=== PATIENT | female | born 1980 | race African-American/Black ===

== ENCOUNTER → 2020-11-11 11:47 | Outpatient (BNVA) | payer OTHER, SELFPAY | PROVIDERS: PCP Nurse Practitioner Family; Visit Provider Physician Assistant ==

== ENCOUNTER → 2020-11-19 07:20 | Outpatient (BNVA) | payer OTHER, SELFPAY | PROVIDERS: PCP Nurse Practitioner Family; Visit Provider Surgery ==

== ENCOUNTER 2020-11-24 10:19 | Outpatient (REF) | payer OTHER, SELFPAY ==
[2020-11-25 14:26] LABS: H Pylori Breath Test DETECTED (NOT DETECTED)
== END 2020-11-24 10:20 | disposition home or self-care (01) ==
LOC: HO.LNP 10:19
PROVIDERS: PCP Nurse Practitioner Family; Visit Provider Physician Assistant
DX: E66.01 Morbid (severe) obesity due to excess calories (principal); Z68.36 Body mass index [BMI] 36.0-36.9, adult; I10 Essential (primary) hypertension; K21.9 Gastro-esophageal reflux disease without esophagitis
CPT/HCPCS: 83013; 99211

== ENCOUNTER 2020-12-02 08:02 | Outpatient (REF) | payer OTHER, SELFPAY ==
--- NOTE | ~2020-12-02 | US_ITS ---
EXAMINATION: US COMPLETE ABDOMEN WITH LIVER ELASTOGRAPHY CLINICAL INFORMATION: obesity COMPARISON: None. TECHNIQUE: Real-time imaging of the abdominal viscera. Noninvasive ultrasound liver fibrosis assessment is performed using Ruddy ElastPQ point quantification shear wave elastography (pSWE) with a C5-2 MHz transducer. Multiple elastography samples are obtained. FINDINGS: PANCREAS: Normal. The visualized pancreatic head and body are normal in appearance. The remainder of the pancreas is obscured from visualization by the overlying bowel gas. ABDOMINAL AORTA: The proximal, middle, and distal aortic segments are normal in caliber. INFERIOR VENA CAVA: Visualized portions are normal. LIVER: Normal. The liver demonstrates normal size, contour and echogenicity. No focal lesion or intrahepatic biliary duct dilatation. The right lobe measures 14.1 cm in length. The left lobe measures 12.6 cm in length. Portal flow is hepatopedal Shear wave liver elastography median stiffness is 1.94 m/s (reference: normal median stiffness is 1.3 m/s or less). IQR/median stiffness to assess sampling precision is 0.19 (reference: good quality data set is IQR/median stiffness of 0.15 or less). GALLBLADDER: There are gallstones. No ultrasound evidence of cholecystitis, no gallbladder wall thickening or tenderness, no pericholecystic fluid collection. COMMON BILE DUCT: Normal in caliber measuring 0.3 cm in diameter. RIGHT KIDNEY: Normal. No hydronephrosis. No renal calculi or focal parenchymal lesions. The kidney measures 12.5 cm in maximum dimension. LEFT KIDNEY: Normal. No hydronephrosis. No renal calculi or focal parenchymal lesions. The kidney measures 14 cm in maximum dimension. SPLEEN: Normal. The spleen measures 11.8 cm in maximum dimension. FREE FLUID: None. US/US abdomen comp w elastography IMPRESSION: 1. Elastography of the liver is slightly abnormal median value is 1.94 and IQR 0.19. 2. Cholelithiasis without ultrasound evidence of acute cholecystitis. REFERENCE: Society of Radiologists in Ultrasound Liver Stiffness Thresholds (2020): LIVER STIFFNESS THRESHOLDS: *Liver Stiffness equal or less than 1.3 m/s: High probability of being normal. *Liver Stiffness less than 1.7 m/s: In the absence of other known clinical signs, rules out compensated advanced chronic liver disease. *Liver Stiffness 1.7-2.1 m/s: Suggestive of compensated advanced chronic liver disease but need further test for confirmation. *Liver Stiffness over 2.1 m/s: Rules in compensated advanced chronic liver disease. *Liver Stiffness over 2.4 m/s: Suggestive of clinically significant portal hypertension. QUALITY OF DATA SET: *IQR/Median value equal or less than 0.15 implies a quality data set. *IQR/Median value over 0.15 implies a poor quality data set. SIGNIFICANT CHANGE FROM PRIOR EXAM: Significant change if liver stiffness measurement is 10% or greater from prior exam. OTHER CONSIDERATIONS: The stage of liver fibrosis may be overestimated in the setting of acute hepatitis, liver inflammation, elevated liver function tests, hepatic vascular congestion, obstructive cholestasis, non-fasting state, and infiltrative diseases such as amyloidosis and lymphoma. In some patients with NAFLD, the liver stiffness thresholds for compensated advanced chronic liver disease may be lower. In causes other than viral hepatitis and NAFLD, liver stiffness thresholds are not well established.
--- NOTE | ~2020-12-02 | XR_ITS ---
EXAMINATION: XR CHEST CLINICAL INFORMATION: Obesity COMPARISON: None TECHNIQUE: 2 views of the chest were obtained. FINDINGS: Cardiac silhouette is normal in size. The lungs are adequately aerated. Mild asymmetric elevation of the right hemidiaphragm. Subtle linear opacity in the left lower lung likely represent subsegmental atelectasis. No lobar consolidation. No pleural effusion or pneumothorax. No acute osseous abnormality. XR/XR chest 2V IMPRESSION: No acute pulmonary pathology.
--- NOTE | ~2020-12-02 | FL_ITS ---
EXAMINATION: XR GI SERIES CLINICAL INFORMATION: Obesity COMPARISON: None TECHNIQUE: Upper GI was performed using thin and thick barium and effervescent granules. FINDINGS: Esophageal motility is normal. There is a small sliding-type hiatal hernia. There is gastroesophageal reflux. The stomach and duodenum are normal-appearing. No fold thickening, mass, ulcer or stricture is seen. FLUOROSCOPY TIME: 0.9 minutes DOSE AREA PRODUCT: 11.8 Whitman per centimeter squared. 24 saved fluoroscopic images. FL/FL upper GI series IMPRESSION: Small sliding-type hiatal hernia and gastroesophageal reflux. Otherwise unremarkable exam.
--- NOTE | 2020-12-02 09:46 | ECG_ITS ---
Test Reason : OBESITY Blood Pressure : / mmHG Vent. Rate : 105 BPM Atrial Rate : 105 BPM P-R Int : 176 ms QRS Dur : 086 ms QT Int : 370 ms P-R-T Axes : 052 003 049 degrees QTc Int : 489 ms Sinus tachycardia Otherwise normal ECG No previous ECGs available Referred By: Saulo Roberts Electronically Signed By:CAT STINSON MD
[2020-12-02 10:14] LABS: Basophils Percent Auto 0.5 % (0-2); Imm Gran Abs Auto 0.02 X10*3/uL (0.00-0.03); Imm Gran Pct Auto 0.3 % (0.0-0.4); MANUAL DIFF FLAG SCAN; Mean Corpuscular Hemoglobin 24.5 pg (27.0-33.0); Red Cell Distribution Width 14.7 % (11.0-16.0); SCAN SMEAR FLAG 1
[2020-12-02 10:16] LABS: Eosinophils Absolute Auto 0.7 X10*3/uL (0.0-0.4); Eosinophils Percent Auto 11.2 % (0-4); Hematocrit 38.2 % (37-47); Lymphocytes Absolute Auto 1.3 X10*3/uL (1.2-4.9); Lymphocytes Percent Auto 21.3 % (20-40); Mean Corpuscular HGB Conc 31.4 g/dl (31.0-35.0); Monocytes Absolute Auto 0.4 X10*3/uL (0.1-1.2); Monocytes Percent Auto 6.4 % (2-11); Neutrophils Absolute Auto 3.6 X10*3/uL (2.0-8.3); Neutrophils Percent Auto 60.3 % (45-73); Platelet Count 120 X10*3/uL (160-400); White Blood Count 6.1 X10*3/uL (4.8-10.8)
[2020-12-02 10:19] LABS: PLT ABN DIST 1
[2020-12-02 10:20] LABS: SLIDE REVIEW VERIFIED
[2020-12-02 10:22] LABS: Alanine Aminotransferase 21 U/L (0-31); Albumin Level 3.9 g/dL (3.5-5.0); Alkaline Phosphatase 90 U/L (39-117); Anion Gap 12 (12-20); Aspartate Amino Transferase 23 U/L (5-31); Bilirubin Total 0.5 mg/dL (0.0-1.0); Blood Urea Nitrogen 7 mg/dL (9-16); C Reactive Protein 1.36 mg/dL (< or = 0.50); Calcium 8.4 mg/dL (8.4-10.2); Carbon Dioxide 29 mmol/L (22-29); Chloride 101 mmol/L (96-108); Cholesterol 153 mg/dL; Estimated Glomerular Filt Rate > 60; Glucose Random 169 mg/dL (60-115); HDL Cholesterol 48 mg/dL; LDL Cholesterol Calculated 89 mg/dl; Potassium 3.2 mmol/L (3.3-5.1); Sodium 139 mmol/L (135-145); Total Protein 7.5 g/dL (6.5-8.0); Triglycerides 84 mg/dL
[2020-12-02 10:32] LABS: Estimated Average Glucose 212 mg/dL
[2020-12-02 10:46] LABS: Ferritin 49 ng/mL (10-122); TSH reflex Free T4 0.89 uIU/mL (0.32-4.0); Vitamin D 25-OH Total 23.4 ng/mL (>30)
[2020-12-02 11:04] LABS: Folate 16.2 ng/mL (> or = 4.0); Vitamin B12 810 pg/mL (200-900)
[2020-12-03 06:37] LABS: Insulin Level Total 14.1 uIU/mL
[2020-12-03 15:01] LABS: Calcium (PTHI) 8.7 mg/dL (8.6-10.2); PTHI 16 pg/mL (14-64)
[2020-12-05 01:52] LABS: Zinc 56 mcg/dL (60-130)
[2020-12-06 12:16] LABS: Vitamin A 25 mcg/dL (38-98)
[2020-12-06 12:42] LABS: Vitamin B1 26 nmol/L (8-30)
== END 2020-12-02 08:03 | disposition home or self-care (01) ==
LOC: HO.US 08:02
PROVIDERS: PCP Internal Medicine; Visit Provider Surgery
DX: Z01.818 Encounter for other preprocedural examination (principal); E66.01 Morbid (severe) obesity due to excess calories; Z68.36 Body mass index [BMI] 36.0-36.9, adult; K21.9 Gastro-esophageal reflux disease without esophagitis; I10 Essential (primary) hypertension
CPT/HCPCS: 36415; 71046; 74240; 76705; 76981; 80053; 80061; 82306; 82607; 82728; 82746; 83036; 83525; 83970; 84425; 84443; 84590; 84630; 85025; 86140; 93005

== ENCOUNTER → 2020-12-12 08:18 | Outpatient (BNVA) | payer OTHER, SELFPAY | PROVIDERS: PCP Internal Medicine; Visit Provider Surgery ==

== ENCOUNTER → 2020-12-19 12:02 | Outpatient (BNVA) | payer OTHER, SELFPAY | PROVIDERS: PCP Nurse Practitioner Family; Visit Provider Dietitian, Registered ==

== ENCOUNTER 2020-12-26 13:29 | Outpatient (REF) | payer OTHER, SELFPAY ==
[2020-12-27 15:12] LABS: H Pylori Breath Test NOT DETECTED (NOT DETECTED)
== END 2020-12-26 13:30 | disposition home or self-care (01) ==
LOC: HO.LNP 13:29
PROVIDERS: Physician Assistant; PCP Nurse Practitioner Family; Referring Provider Nurse Practitioner Family; Visit Provider Surgery
DX: A04.8 Other specified bacterial intestinal infections (principal)
CPT/HCPCS: 83013; 99211

== ENCOUNTER 2020-12-31 10:39 | Outpatient (REF) | payer OTHER, SELFPAY ==
[2020-12-31 11:52] LABS: Estimated Average Glucose 194 mg/dL; Hemoglobin A1c % 8.4 %
[2020-12-31 11:55] LABS: Anion Gap 10 (12-20); Blood Urea Nitrogen 5 mg/dL (9-16); Calcium 9.4 mg/dL (8.4-10.2); Carbon Dioxide 29 mmol/L (22-29); Chloride 104 mmol/L (96-108); Estimated Glomerular Filt Rate > 60; Glucose Fasting 106 mg/dL (60-99); Potassium 4.4 mmol/L (3.3-5.1); Sodium 139 mmol/L (135-145)
== END 2020-12-31 10:40 | disposition home or self-care (01) ==
LOC: HO.LAB 10:39
PROVIDERS: PCP Nurse Practitioner Family; Visit Provider Surgery
DX: E11.9 Type 2 diabetes mellitus without complications (principal)
CPT/HCPCS: 36415; 80048; 83036

== ENCOUNTER → 2021-01-12 08:14 | Outpatient (BNVA) | payer OTHER, SELFPAY | PROVIDERS: PCP Nurse Practitioner Family; Visit Provider Dietitian, Registered | DX: E66.9 Obesity, unspecified (principal); Z68.33 Body mass index [BMI] 33.0-33.9, adult | CPT/HCPCS: 97802 ==

== ENCOUNTER → 2021-01-19 07:37 | Outpatient (BNVA) | payer OTHER, SELFPAY | PROVIDERS: PCP Nurse Practitioner Family; Visit Provider Surgery ==

== ENCOUNTER → 2021-01-22 13:05 | Outpatient (BNVA) | payer OTHER, SELFPAY | PROVIDERS: PCP Nurse Practitioner Family; Visit Provider Surgery ==

== ENCOUNTER → 2021-01-23 13:41 | Outpatient (BNVA) | payer OTHER, SELFPAY | PROVIDERS: PCP Nurse Practitioner Family; Visit Provider Physician Assistant ==

== ENCOUNTER 2021-01-29 06:14 | Inpatient (IN) | payer OTHER, SELFPAY ==
[2021-01-22 14:55] VITALS: BMI 32.8
--- NOTE | 2021-01-23 09:48 | HO.ANESPROP2 ---
HPI - Anesthesia Eval Consult details Narrative: 40yo F for Gastric Bypass Laparoscopic h/o ETOH abuse x 10 years, on naltrexone, no ETOH for ~1year cirrhosis followed by GI doctor at [facility] - last GI note and EGD (no varices) report obtained (sent to Dr Persaud). LFTs wnl. Case reviewed with Dr Junior. [facility] Active Problems Active Problems: All Active Problems (Updated 01/22/21 @ 14:59 by Christie Alba) Obesity (Acute) BMI 36.0-36.9,adult (Acute) Insulin dependent diabetes mellitus (Acute) H. pylori infection (Acute) Vitamin D deficiency (Acute) Diabetes (Acute) BMI 32.0-32.9,adult (Acute) Preprocedural examination (Acute) Anxiety (Acute) Depression (Acute) GERD (gastroesophageal reflux disease) (Acute) Hypertension (Acute) Past Medical History Medical History (Updated 01/30/21 @ 00:02 by Yamil Conde) ADD (attention deficit disorder) Anemia Anxiety BMI 32.0-32.9,adult BMI 36.0-36.9,adult Cirrhosis COVID-19 vaccine series completed Depression Diabetes GERD (gastroesophageal reflux disease) H. pylori infection History of alcohol abuse Hypertension Neuropathy Preprocedural examination Seasonal allergies Tachycardia Vitamin D deficiency Family History Family History Mother Hypertension Father No problems noted. Brother No problems noted. Brother No problems noted. Brother No problems noted. Sister No problems noted. Daughter No problems noted. Daughter No problems noted. Family history of problems with anesthesia: No Surgical History Surgical History (Updated 01/29/21 @ 12:37 by Nguyen Avendano PA-C) History of ear surgery Hx of section History of Problems with Anesthesia: No Social History Social History (Updated 11/19/20 @ 09:06 by Geoff Millan Meredith) Are you a primary long term care administrator to a significant other at home: No Do you presently have visiting nurse or other home services: No Alcohol intake: former Patient Tobacco Use Status: Never used Tobacco service: No Current occupational status: unemployed Narrative Narrative: No recent illness >4 mets with walking for exercise Meds Allergies Allergy/AdvReac Type Severity Reaction Status Date / Time No Known Allergies Allergy Verified 01/22/21 13:12 Home Medications Medication Instructions Recorded Confirmed Last Taken Type buspirone 5 mg tablet 5 mg PO BID 11/11/20 01/22/21 Unknown History insulin glargine 100 unit/mL (3 17 unit SUBCUT QPM 11/11/20 01/22/21 Unknown History mL) subcutaneous pen Vyvanse 1 cap PO QAM 01/22/21 01/22/21 Unknown History amitriptyline 1 tab PO BEDTIME 01/22/21 01/22/21 Unknown History bupropion HCl 1 tab PO DAILY 01/22/21 01/22/21 Unknown History escitalopram oxalate 1 tab PO DAILY 01/22/21 01/22/21 Unknown History furosemide 1 tab PO DAILY 01/22/21 01/22/21 Unknown History lisinopril 1 tab PO DAILY 01/22/21 01/22/21 Unknown History naltrexone 1 tab PO DAILY 01/22/21 01/22/21 Unknown History trazodone 1 tab PO BEDTIME PRN 01/22/21 01/22/21 Unknown History amlodipine 1 tab PO DAILY 01/29/21 01/29/21 Unknown History Exam Exam Date and Time: January 23, 2021 0948 Height,Weight and Vital Signs: Height 5 ft 1 in Weight 78.925 kg Pertinent Lab Results Pertinent Lab Results: Lab Results 01/23/21 01/23/21 01/23/21 Range/Units 12:18 12:18 12:18 WBC 5.8 (4.8-10.8) X10*3/uL RBC 4.94 (4.20-5.50) X10*6/uL Hgb 12.6 (12.0-16.0) g/dl Hct 39.5 (37-47) % MCV 80.0 (80-98) fL MCH 25.5 L (27.0-33.0) pg MCHC 31.9 (31.0-35.0) g/dl RDW 13.7 (11.0-16.0) % Plt Count 110 L (160-400) X10*3/uL MPV Not Reportable Immature Gran % (Auto) 0.2 (0.0-0.4) % Neut % (Auto) 54.7 (45-73) % Lymph % (Auto) 26.2 (20-40) % [place] % (Auto) 6.7 (2-11) % Eos % (Auto) 11.3 H (0-4) % Baso % (Auto) 0.9 (0-2) % Lymph # (Auto) 1.5 (1.2-4.9) X10*3/uL [place] # (Auto) 0.4 (0.1-1.2) X10*3/uL Eos # (Auto) 0.7 H (0.0-0.4) X10*3/uL Baso # (Auto) 0.1 (0.0-0.2) X10*3/uL Abs Immat Gran (auto) 0.01 (0.00-0.03) X10*3/uL Absolute Neuts (auto) 3.2 (2.0-8.3) X10*3/uL Absolute Nucleated RBC 0.000 (0.0-0.012) X10*3/uL Nucleated RBC % (auto) 0.0 (0.0-0.2) /100WBC PT 13.7 H (10.8-13.0) SEC INR 1.2 H (0.9-1.1) APTT 35.8 (24.1-38.0) SEC Sodium 139 (135-145) mmol/L Potassium 4.0 (3.3-5.1) mmol/L Chloride 102 (96-108) mmol/L Carbon Dioxide 30 H (22-29) mmol/L Anion Gap 11 L (12-20) BUN 9 D (9-16) mg/dL Creatinine 1.03 (0.5-1.4) mg/dL Estim Creat Clear Calc 70.4 Estimated GFR 60 Random Glucose 135 H (60-115) mg/dL Estimat Average Glucose mg/dL Hemoglobin A1c % % Total Insulin uIU/mL Calcium 9.3 (8.4-10.2) mg/dL Total Bilirubin 0.2 (0.0-1.0) mg/dL AST 29 (5-31) U/L ALT 28 (0-31) U/L Alkaline Phosphatase 96 (39-117) U/L C-Reactive Protein 1.17 H (< or = 0.50) mg/dL Total Protein 7.4 (6.5-8.0) g/dL Albumin 3.9 (3.5-5.0) g/dL Triglycerides 101 mg/dL Cholesterol 167 mg/dL LDL Cholesterol, Calc 103 mg/dl HDL Cholesterol 44 mg/dL TSH 0.50 (0.32-4.0) uIU/mL Blood Type Antibody Screen 01/23/21 01/23/21 01/23/21 Range/Units 12:18 12:18 12:18 WBC (4.8-10.8) X10*3/uL RBC (4.20-5.50) X10*6/uL Hgb (12.0-16.0) g/dl Hct (37-47) % MCV (80-98) fL MCH (27.0-33.0) pg MCHC (31.0-35.0) g/dl RDW (11.0-16.0) % Plt Count (160-400) X10*3/uL MPV Immature Gran % (Auto) (0.0-0.4) % Neut % (Auto) (45-73) % Lymph % (Auto) (20-40) % [place] % (Auto) (2-11) % Eos % (Auto) (0-4) % Baso % (Auto) (0-2) % Lymph # (Auto) (1.2-4.9) X10*3/uL [place] # (Auto) (0.1-1.2) X10*3/uL Eos # (Auto) (0.0-0.4) X10*3/uL Baso # (Auto) (0.0-0.2) X10*3/uL Abs Immat Gran (auto) (0.00-0.03) X10*3/uL Absolute Neuts (auto) (2.0-8.3) X10*3/uL Absolute Nucleated RBC (0.0-0.012) X10*3/uL Nucleated RBC % (auto) (0.0-0.2) /100WBC PT (10.8-13.0) SEC INR (0.9-1.1) APTT (24.1-38.0) SEC Sodium (135-145) mmol/L Potassium (3.3-5.1) mmol/L Chloride (96-108) mmol/L Carbon Dioxide (22-29) mmol/L Anion Gap (12-20) BUN (9-16) mg/dL Creatinine (0.5-1.4) mg/dL Estim Creat Clear Calc Estimated GFR Random Glucose (60-115) mg/dL Estimat Average Glucose 183 mg/dL Hemoglobin A1c % 8.0 % Total Insulin 19.1 uIU/mL Calcium (8.4-10.2) mg/dL Total Bilirubin (0.0-1.0) mg/dL AST (5-31) U/L ALT (0-31) U/L Alkaline Phosphatase (39-117) U/L C-Reactive Protein (< or = 0.50) mg/dL Total Protein (6.5-8.0) g/dL Albumin (3.5-5.0) g/dL Triglycerides mg/dL Cholesterol mg/dL LDL Cholesterol, Calc mg/dl HDL Cholesterol mg/dL TSH (0.32-4.0) uIU/mL Blood Type O Positive Antibody Screen NEGATIVE Narrative Narrative: EKG 11/2020 Vent. Rate : 105 BPM Atrial Rate : 105 BPM P-R Int : 176 ms QRS Dur : 086 ms QT Int : 370 ms P-R-T Axes : 052 003 049 degrees QTc Int : 489 ms Sinus tachycardia Otherwise normal ECG No previous ECGs available Airway Mallampati Class: II TM Dist: >3cm Neck ROM: Full Denture: Upper and Lower Heart: tachy, RR Lungs: CTAB Assessment and Plan Assessment Anesthesia Assessment: Anesthesia Plan Discussed and PAT Visit
[2021-01-23 13:04] VITALS: BP 123/75; PULSE 101; RESP 20; O2SAT 97
[2021-01-23 13:15] LABS: Basophils Absolute Auto 0.1 X10*3/uL (0.0-0.2); Eosinophils Percent Auto 11.3 % (0-4); Imm Gran Abs Auto 0.01 X10*3/uL (0.00-0.03); Imm Gran Pct Auto 0.2 % (0.0-0.4)
[2021-01-23 13:17] LABS: Basophils Percent Auto 0.9 % (0-2); Eosinophils Absolute Auto 0.7 X10*3/uL (0.0-0.4); Hematocrit 39.5 % (37-47); Hemoglobin 12.6 g/dl (12.0-16.0); Lymphocytes Absolute Auto 1.5 X10*3/uL (1.2-4.9); Lymphocytes Percent Auto 26.2 % (20-40); Mean Corpuscular HGB Conc 31.9 g/dl (31.0-35.0); Mean Corpuscular Hemoglobin 25.5 pg (27.0-33.0); Monocytes Absolute Auto 0.4 X10*3/uL (0.1-1.2); Monocytes Percent Auto 6.7 % (2-11); Neutrophils Absolute Auto 3.2 X10*3/uL (2.0-8.3); Neutrophils Percent Auto 54.7 % (45-73); Platelet Count 110 X10*3/uL (160-400); Red Blood Count 4.94 X10*6/uL (4.20-5.50); Red Cell Distribution Width 13.7 % (11.0-16.0); White Blood Count 5.8 X10*3/uL (4.8-10.8)
[2021-01-23 13:20] LABS: MANUAL DIFF FLAG NO
[2021-01-23 13:25] LABS: INTERNATIONAL NORM RATIO 1.2 (0.9-1.1); Prothrombin Time 13.7 SEC (10.8-13.0)
[2021-01-23 13:27] LABS: Estimated Average Glucose 183 mg/dL; Partial Thromboplastin Time 35.8 SEC (24.1-38.0)
[2021-01-23 13:40] LABS: Alanine Aminotransferase 28 U/L (0-31); Albumin Level 3.9 g/dL (3.5-5.0); Alkaline Phosphatase 96 U/L (39-117); Anion Gap 11 (12-20); Aspartate Amino Transferase 29 U/L (5-31); Bilirubin Total 0.2 mg/dL (0.0-1.0); Blood Urea Nitrogen 9 mg/dL (9-16); C Reactive Protein 1.17 mg/dL (< or = 0.50); Calcium 9.3 mg/dL (8.4-10.2); Carbon Dioxide 30 mmol/L (22-29); Chloride 102 mmol/L (96-108); Cholesterol 167 mg/dL; Creatinine Clr Calc Pharmacy 70.4; Estimated Glomerular Filt Rate 60; Glucose Random 135 mg/dL (60-115); HDL Cholesterol 44 mg/dL; LDL Cholesterol Calculated 103 mg/dl; Sodium 139 mmol/L (135-145); Total Protein 7.4 g/dL (6.5-8.0); Triglycerides 101 mg/dL
[2021-01-24 09:25] LABS: Insulin Level Total 19.1 uIU/mL
--- NOTE | 2021-01-28 19:39 | MHC.SHP ---
Pre-Procedural Eval Section A The patient is an INPATIENT: Yes The History & Physical has been completed within 30 days and I have reviewed it.: Yes Section B Chief Complaint: Obesity Details of Present Illness: Obesity and comorbidities Relevant Family History (Specify if Yes): No Relevant Social History: None Present Medications: see Short Stay Collaborative assessment Medical History: No relevant PMH History of Previous Operations: No relevant previous surgery Allergies: Allergies Allergy/AdvReac Type Severity Reaction Status Date / Time No Known Allergies Allergy Verified 01/22/21 13:12 Review of Systems Sugical H&P ROS: Negative: Constitution, Cardiovascular, Respiratory, Neurological, Psychiatric, Hem-Onc, Allergic/Immunologic, Gastrointestinal, Genitourinary, Musculoskeletal, Integumentary, Endocrine and Eyes/Ears/Nose/Throat Exam Surgical H&P Exam: Normal: HEENT, Normal: Heart, Normal: Lungs, Normal: Extremities, Normal: Abdomen, Normal: Skin and Normal: Neurological Plan Diagnosis/Plan: Change (Original plan was to do a laparoscopic Nicole-en-Y gastric bypass. However after considering her BMI, the significant improvement of her diabetes with preoperative weight loss and a some sonographic evidence of possible early liver cirrhosis a decision was made to change to sleeve gastrectomy.) I have reviewed the history and physical and performed a pertinent physical examination on my patient. No changes have occurred unless specified.
[2021-01-29] VITALS (22 sets, daily range): BP systolic 132–184; BP diastolic 79–111; PULSE 94–105; RESP 13–18; TEMP 36–36.7; O2SAT 96–100
[2021-01-29 06:37] LABS: Glucose, Whole Blood 88 mg/dL (60-115)
[2021-01-29 06:44] LABS: UPreg QC Valid YES; Urine Pregnancy NEGATIVE (NEGATIVE)
[2021-01-29 06:47] LABS: COVID-19 Test Negative (Negative); IDNOW Serial# 9DD0AD1C
[2021-01-29] MEDS: Lactated Ringers 1,000 ML 999 ML IV (07:04)
--- NOTE | 2021-01-29 07:30 | P.CONAN_ITS ---
[facility] Active Problems Active Problems: All Active Problems (Updated 01/23/21 @ 13:15 by Christie haddad) Obesity (Acute) BMI 36.0-36.9,adult (Acute) Insulin dependent diabetes mellitus (Acute) H. pylori infection (Acute) Vitamin D deficiency (Acute) Diabetes (Acute) BMI 32.0-32.9,adult (Acute) Preprocedural examination (Acute) Anxiety (Acute) Depression (Acute) GERD (gastroesophageal reflux disease) (Acute) Hypertension (Acute) Past Medical History Medical History ADD (attention deficit disorder) Anemia Anxiety Cirrhosis COVID-19 vaccine series completed Depression Diabetes GERD (gastroesophageal reflux disease) History of alcohol abuse Hypertension Seasonal allergies Tachycardia Family History Family History Mother Hypertension Father No problems noted. Brother No problems noted. Brother No problems noted. Brother No problems noted. Sister No problems noted. Daughter No problems noted. Daughter No problems noted. Family history of problems with anesthesia: No Surgical History Surgical History History of ear surgery Hx of section History of Problems with Anesthesia: No Social History Social History (Updated 11/19/20 @ 09:06 by Geoff Millan [facility]) Are you a primary primary care sales representative to a significant other at home: No Do you presently have visiting nurse or other home services: No Alcohol intake: former Patient Tobacco Use Status: Never used Tobacco Use of substances other than those prescribed or required for medical reasons: No Have you been hit, kicked, punched, or otherwise hurt by someone within the past year? If so, by whom?: No Are you DNR?: No Advance Directives: No Advance Directives Information Provided: No Advance Directives on File: No Recently lost weight without trying: No Eating poorly because of decreased appetite: No Nutrition Risks: No Nutritional Risk Patient : No Meds Allergies Allergy/AdvReac Type Severity Reaction Status Date / Time No Known Allergies Allergy Verified 01/22/21 13:12 Active Medications: Current Medications Generic Name Dose Route Start Last Admin Trade Name Freq PRN Reason Stop Dose Admin Lactated Ringer's 1,000 mls @ 100 mls/hr 01/29/21 06:15 Lr IVCONT .Q10H [facility] Home Medications Medication Instructions Recorded Confirmed Last Taken Type amlodipine 10 mg tablet 10 mg PO DAILY 11/11/20 01/22/21 Unknown History buspirone 5 mg tablet 5 mg PO BID 11/11/20 01/22/21 Unknown History insulin glargine 100 unit/mL (3 17 unit SUBCUT QPM 11/11/20 01/22/21 Unknown History mL) subcutaneous pen amitriptyline 1 tab PO BEDTIME 01/22/21 01/22/21 Unknown History bupropion HCl 1 tab PO DAILY 01/22/21 01/22/21 Unknown History dapagliflozin [Farxiga] 1 tab PO DAILY 01/22/21 01/22/21 Unknown History docusate sodium 1 cap PO BID PRN 01/22/21 01/22/21 Unknown History dulaglutide [Trulicity] 0.5 ml SUBCUT QWEEK 01/22/21 01/22/21 Unknown History escitalopram oxalate 1 tab PO DAILY 01/22/21 01/22/21 Unknown History ferrous sulfate 1 tab PO BID 01/22/21 01/22/21 Unknown History furosemide 1 tab PO DAILY 01/22/21 01/22/21 Unknown History ibuprofen 1 tab PO Q6H PRN 01/22/21 01/22/21 01/22/21 History lisdexamfetamine [Vyvanse] 1 cap PO QAM 01/22/21 01/22/21 Unknown History lisinopril 1 tab PO DAILY 01/22/21 01/22/21 Unknown History naltrexone 1 tab PO DAILY 01/22/21 01/22/21 Unknown History omeprazole 1 cap PO DAILY 01/22/21 01/22/21 Unknown History pregabalin 2 cap PO TID 01/22/21 01/23/21 01/22/21 History thiamine HCl (vitamin B1) 1 tab PO DAILY 01/22/21 01/22/21 Unknown History trazodone 1 tab PO BEDTIME PRN 01/22/21 01/22/21 Unknown History Exam Exam Date and Time: January 29, 2021 0730 Height,Weight and Vital Signs: Height 5 ft 1 in Weight 78.925 kg Last Vital Signs Temp 97.8 F 01/29/21 06:20 Pulse 102 H 01/29/21 06:20 Resp 18 01/29/21 06:20 BP 132/79 01/29/21 06:20 Pulse Ox 98 01/29/21 06:20 Pertinent Lab Results Pertinent Lab Results: Laboratory Tests 01/23/21 01/23/21 01/23/21 12:18 12:18 12:18 WBC 5.8 RBC 4.94 Hgb 12.6 Hct 39.5 MCV 80.0 MCH 25.5 L MCHC 31.9 RDW 13.7 Plt Count 110 L MPV Not Reportable Immature Gran % (Auto) 0.2 Neut % (Auto) 54.7 Lymph % (Auto) 26.2 [place] % (Auto) 6.7 Eos % (Auto) 11.3 H Baso % (Auto) 0.9 Lymph # (Auto) 1.5 [place] # (Auto) 0.4 Eos # (Auto) 0.7 H Baso # (Auto) 0.1 Abs Immat Gran (auto) 0.01 Absolute Neuts (auto) 3.2 Absolute Nucleated RBC 0.000 Nucleated RBC % (auto) 0.0 PT 13.7 H INR 1.2 H APTT 35.8 Sodium 139 Potassium 4.0 Chloride 102 Carbon Dioxide 30 H Anion Gap 11 L BUN 9 D Creatinine 1.03 Estim Creat Clear Calc 70.4 Estimated GFR 60 POC Glucose Random Glucose 135 H Estimat Average Glucose Hemoglobin A1c % Total Insulin Calcium 9.3 Total Bilirubin 0.2 AST 29 ALT 28 Alkaline Phosphatase 96 C-Reactive Protein 1.17 H Total Protein 7.4 Albumin 3.9 Triglycerides 101 Cholesterol 167 LDL Cholesterol, Calc 103 HDL Cholesterol 44 TSH 0.50 Urine Test COVID-19 ([facility]) COVID-19 Clin Com Blood Type Antibody Screen 01/23/21 01/23/21 01/23/21 12:18 12:18 12:18 WBC RBC Hgb Hct MCV MCH MCHC RDW Plt Count MPV Immature Gran % (Auto) Neut % (Auto) Lymph % (Auto) [place] % (Auto) Eos % (Auto) Baso % (Auto) Lymph # (Auto) [place] # (Auto) Eos # (Auto) Baso # (Auto) Abs Immat Gran (auto) Absolute Neuts (auto) Absolute Nucleated RBC Nucleated RBC % (auto) PT INR APTT Sodium Potassium Chloride Carbon Dioxide Anion Gap BUN Creatinine Estim Creat Clear Calc Estimated GFR POC Glucose Random Glucose Estimat Average Glucose 183 Hemoglobin A1c % 8.0 Total Insulin 19.1 Calcium Total Bilirubin AST ALT Alkaline Phosphatase C-Reactive Protein Total Protein Albumin Triglycerides Cholesterol LDL Cholesterol, Calc HDL Cholesterol TSH Urine Test COVID-19 ([facility]) COVID-19 Clin Com Blood Type O Positive Antibody Screen NEGATIVE 01/29/21 01/29/21 01/29/21 06:12 06:12 06:26 WBC RBC Hgb Hct MCV MCH MCHC RDW Plt Count MPV Immature Gran % (Auto) Neut % (Auto) Lymph % (Auto) [place] % (Auto) Eos % (Auto) Baso % (Auto) Lymph # (Auto) [place] # (Auto) Eos # (Auto) Baso # (Auto) Abs Immat Gran (auto) Absolute Neuts (auto) Absolute Nucleated RBC Nucleated RBC % (auto) PT INR APTT Sodium Potassium Chloride Carbon Dioxide Anion Gap BUN Creatinine Estim Creat Clear Calc Estimated GFR POC Glucose 88 Random Glucose Estimat Average Glucose Hemoglobin A1c % Total Insulin Calcium Total Bilirubin AST ALT Alkaline Phosphatase C-Reactive Protein Total Protein Albumin Triglycerides Cholesterol LDL Cholesterol, Calc HDL Cholesterol TSH Urine Test NEGATIVE COVID-19 ([facility]) Negative COVID-19 Clin Com See Note Blood Type Antibody Screen Airway Mallampati Class: IV TM Dist: >3cm Neck ROM: Full Heart: RRR Lungs: CTA
[2021-01-29] MEDS: fentaNYL citrate/PF 100 MCG/2 ML VIAL 25 MCG IVPUSH ×4 (11:21→11:36)
[2021-01-29] MEDS: Famotidine/PF 20 MG/2 ML VIAL IVPUSH ×2 (11:25→21:26)
[2021-01-29 12:02] LABS: Hemoglobin 12.6 g/dl (12.0-16.0)
[2021-01-29 12:21] LABS: Anion Gap 12 (12-20); Blood Urea Nitrogen 6 mg/dL (9-16); Calcium 8.9 mg/dL (8.4-10.2); Carbon Dioxide 25 mmol/L (22-29); Chloride 104 mmol/L (96-108); Creatinine Clr Calc Pharmacy 108.2; Estimated Glomerular Filt Rate > 60; Glucose Random 150 mg/dL (60-115); Potassium 3.9 mmol/L (3.3-5.1); Sodium 137 mmol/L (135-145)
[2021-01-29 12:35] LABS: Glucose, Whole Blood 159 mg/dL (60-115)
[2021-01-29] MEDS: hydrALAZINE HCl 20 MG/ML VIAL 10 MG IVPUSH (12:47)
--- NOTE | 2021-01-29 13:03 | PM.DS ---
DS: Providers Provider Date of Service: 01/30/21 Date of admission: 01/29/21 06:14 Primary care physician: Vianey Zapata NP DS: Medications Discharge Medications Home Medications: Home Medications Medication Instructions Recorded Confirmed amlodipine 10 mg tablet 10 mg PO DAILY 11/11/20 01/22/21 buspirone 5 mg tablet 5 mg PO BID 11/11/20 01/22/21 insulin glargine 100 unit/mL (3 17 unit SUBCUT QPM 11/11/20 01/22/21 mL) subcutaneous pen amitriptyline 1 tab PO BEDTIME 01/22/21 01/22/21 bupropion HCl 1 tab PO DAILY 01/22/21 01/22/21 dapagliflozin [Farxiga] 1 tab PO DAILY 01/22/21 01/22/21 docusate sodium 1 cap PO BID PRN 01/22/21 01/22/21 dulaglutide [Trulicity] 0.5 ml SUBCUT QWEEK 01/22/21 01/22/21 escitalopram oxalate 1 tab PO DAILY 01/22/21 01/22/21 ferrous sulfate 1 tab PO BID 01/22/21 01/22/21 furosemide 1 tab PO DAILY 01/22/21 01/22/21 ibuprofen 1 tab PO Q6H PRN 01/22/21 01/22/21 lisdexamfetamine [Vyvanse] 1 cap PO QAM 01/22/21 01/22/21 lisinopril 1 tab PO DAILY 01/22/21 01/22/21 naltrexone 1 tab PO DAILY 01/22/21 01/22/21 omeprazole 1 cap PO DAILY 01/22/21 01/22/21 pregabalin 2 cap PO TID 01/22/21 01/23/21 thiamine HCl (vitamin B1) 1 tab PO DAILY 01/22/21 01/22/21 trazodone 1 tab PO BEDTIME PRN 01/22/21 01/22/21 Previous Rx's Medication Instructions Recorded cholecalciferol (vitamin D3) 125 125 mcg PO DAILY #30 cap 12/03/20 mcg (5,000 unit) capsule ondansetron HCl 4 mg tablet 4 mg PO Q12H PRN #20 tab 01/22/21 pantoprazole 40 mg tablet,delayed 40 mg PO DAILY #30 tab 01/22/21 release polyethylene glycol 3350 17 gram 17 g PO DAILY #14 ea 01/22/21 oral powder packet sucralfate 100 mg/mL oral 10 ml PO BID #400 ml 01/22/21 suspension DS: Summary Time Spent with Patient Time attestation: ADMITTING DIAGNOSIS: morbid obesity, IDDM, HTN, GERD, hiatal hernia DISCHARGE DIAGNOSIS: same, s/p laparoscopic sleeve gastrectomy and repair diaphragmatic hernia PAST SURGICAL HISTORY: PROCEDURE: upper endoscopy, laparoscopic sleeve gastrectomy and repair of diaphragmatic hernia hernia DISCHARGE SUMMARY: History of Present Illness: The patient is a 40 yo woman with 36.3 BMI pre op and who lost 22.2 lbs pre operatively and was electively scheduled for laparoscopic, possible open sleeve gastrectomy and gastropexy. Risks and complications of the surgery were discussed with the patient in advance, particularly the possibility of , pulmonary embolism, anastomotic leak, bleeding, bowel injury, GERD, cardiac, renal or pulmonary complications. The patient understood all the risks and was in agreement with the surgical plan. Hospital Course: The patient underwent an uneventful laparoscopic sleeve gastrectomy with gastropexy and repair of diaphragmatic hernia on the day of admission. Postoperatively, the patient was transferred to the surgical floor. The patient was on IV Acetaminophen and IV dilaudid for pain control. Patient was started on bariatric phase 1 diet POD #0. On postoperative day one, the patient was feeling well without nausea, vomiting, fevers, or tachycardia. The patient had some mild incisional pain. The abdomen was soft. On the morning of postoperative day one, the patient was continued on 1 ounce of water or ice every half hour. During the first day, the patient did fairly well, having some incisional pain, but able to ambulate adequately and to tolerate liquids well. Since the patient is doing well, we decided that the patient was ready to be discharged. The patient was given instructions to follow-up with me next week and to call my office for any fever over 101, persistent abdominal pain, nausea, vomiting, GERD, symptoms of DVT such as calf tenderness, or leg swelling, or pulmonary embolism such as chest pain or shortness of breath. The patient was also instructed to drink 40-60 ounces of liquids per day using the 1-ounce cups. The patient was given prescription for Tylenol for pain, Zofran prn for nausea, and pantoprazole and carafate. The patient was encouraged to ambulate and use the incentive spirometer. The patient was allowed to shower, but no baths, and encouraged to stay active at home. All of these instructions were given to the patient personally. All questions were answered and the patient understood all instructions, the instructions were also given to the patient in print. Total time spent providing and/or coordinating discharge services: 15 Discharge coordination time: Less than 30 minutes Quality: Stroke Does the patient have a stroke diagnosis?: No Physical Exam Vital Signs: Vital Signs: Last Vital Signs Temp 97.2 F 01/29/21 10:43 Pulse 100 01/29/21 12:59 Resp 16 01/29/21 12:55 BP 152/94 H 01/29/21 12:59 Pulse Ox 100 01/29/21 12:55 Body Mass Index 32.8 DS: Data Data Completed and Pending Pending studies at discharge: Pending at discharge 01/29/21 09:47 Surgical [PTH] Routine Labs on day of discharge: Laboratory Results - last 24 hr 01/29/21 01/29/21 01/29/21 06:12 06:12 06:26 Hgb Hct Sodium Potassium Chloride Carbon Dioxide Anion Gap BUN Creatinine Estim Creat Clear Calc Estimated GFR POC Glucose 88 Random Glucose Calcium Urine Test NEGATIVE COVID-19 ([facility]) Negative COVID-19 Clin Com See Note 01/29/21 01/29/21 01/29/21 11:44 11:44 12:11 Hgb 12.6 Hct 39.0 Sodium 137 Potassium 3.9 Chloride 104 Carbon Dioxide 25 Anion Gap 12 BUN 6 L Creatinine 0.67 Estim Creat Clear Calc 108.2 Estimated GFR > 60 POC Glucose 159 H Random Glucose 150 H Calcium 8.9 Urine Test COVID-19 ([facility]) COVID-19 Clin Com Discharge Plan Discharge Anticipated Discharge Date/Time: 01/30/21 11:48 Patient Disposition: Home, Self-Care Discharge Diagnosis: s/p sleeve gastrecotmy Referrals: Vianey Zapata NP [Primary Care Provider] - 1 Week Discharge Medications: Continued trazodone 50 mg tablet 1 tab PO BEDTIME PRN (Reason: insomnia) RF: 0 naltrexone 50 mg tablet 1 tab PO DAILY RF: 0 lisinopril 20 mg tablet 1 tab PO DAILY RF: 0 amitriptyline 50 mg tablet 1 tab PO BEDTIME RF: 0 escitalopram oxalate 20 mg tablet 1 tab PO DAILY RF: 0 bupropion HCl 300 mg tablet extended release 24 hr 1 tab PO DAILY RF: 0 Vyvanse 60 mg capsule 1 cap PO QAM RF: 0 amlodipine 5 mg tablet 1 tab PO DAILY RF: 0 pantoprazole 40 mg tablet,delayed release (DR/EC) 40 mg PO DAILY Qty: 30 RF: 2 sucralfate 100 mg/mL suspension 10 ml PO BID Qty: 400 RF: 2 ondansetron HCl [Zofran] 4 mg tablet 4 mg PO Q12H PRN (Reason: nausea and vomiting) Qty: 20 RF: 0 Lantus Solostar U-100 Insulin 100 unit/mL (3 mL) insulin pen 17 unit subcut QPM RF: 0 buspirone 5 mg tablet 5 mg PO BID RF: 0 Held furosemide 20 mg tablet 1 tab PO DAILY RF: 0 Hold Instructions: Discuss restart with Dr Alejandra Hill cholecalciferol (vitamin D3) 125 mcg (5,000 unit) capsule 125 mcg PO DAILY Qty: 30 RF: 2 thiamine HCl (vitamin B1) 100 mg tablet 1 tab PO DAILY RF: 0 omeprazole 40 mg capsule,delayed release(DR/EC) 1 cap PO DAILY RF: 0 docusate sodium 100 mg capsule 1 cap PO BID PRN (Reason: constipation) RF: 0 ibuprofen 600 mg tablet 1 tab PO Q6H PRN (Reason: mild pain) RF: 0 ferrous sulfate 325 mg (65 mg iron) tablet,delayed release (DR/EC) 1 tab PO BID RF: 0 pregabalin 50 mg capsule 2 cap PO TID RF: 0 Farxiga 5 mg tablet 1 tab PO DAILY RF: 0 Trulicity 1.5 mg/0.5 mL pen injector 0.5 ml subcut QWEEK RF: 0 polyethylene glycol 3350 [Miralax] 17 gram powder in packet 17 g PO DAILY Qty: 14 RF: 0 Discharge Orders: Discharge Order (Routine); Ordered 01/30/21 Ordered By: Saulo Roberts Diet: other Activity on Discharge: No heavy lifting Stand Alone Forms: Patient Portal Discharge page Activity Restrictions/Additional Instructions: No tub baths, sex or returning to work until discussed at first post op appointment. No exercise, alcohol, tobacco or illegal drug use. Continue to use incentive spirometer hourly while awake. Walk in home for 5- 10 minutes every 2 hours during the first week. Continue phase 1 diet today and start phase 2 diet tomorrow morning. Follow all instructions in the bariatric handbook and call with any questions. Care Plan Goals: weight loss Health Concerns: morbid obesity Plan of Treatment: see discharge instructions Assessment: POD #1 stable s/p sleeve gastrectomy Discharge Date/Time: 01/30/21 10:43
--- NOTE | 2021-01-29 14:46 | HO.POSTANES ---
Post Anesthesia Evaluation Post Anesthesia Evaluation Vital Signs: Vital Signs Temp Pulse Resp BP Pulse Ox 01/29/21 14:23 96.9 F 105 H 18 150/79 H 97 01/29/21 13:17 102 H 18 152/93 H 99 01/29/21 12:59 100 152/94 H 01/29/21 12:55 101 H 16 152/93 H 100 01/29/21 12:47 98 165/101 H 01/29/21 12:41 97 16 171/99 H 100 01/29/21 12:26 98 14 165/98 H 100 01/29/21 12:11 97 14 166/97 H 100 01/29/21 11:56 97 14 162/99 H 100 01/29/21 11:41 97 13 159/99 H 100 01/29/21 11:36 97 13 174/103 H 01/29/21 11:31 98 14 169/102 H 100 01/29/21 11:26 97 14 171/105 H 98 01/29/21 11:21 98 14 167/106 H 98 01/29/21 11:13 100 14 174/106 H 99 01/29/21 10:58 100 14 164/106 H 100 01/29/21 10:53 100 14 184/111 H 100 01/29/21 10:48 98 14 171/101 H 99 01/29/21 10:43 97.2 F 99 14 168/102 H 96 01/29/21 06:20 97.8 F 102 H 18 132/79 98 Anesthesia: General Mental Status: Awake Pain Control: Satisfactory Nausea/Vomiting: None Hydration: Adequate Anesthesia-Related Issues: No Anes. Related Issues
[2021-01-29 15:01] LABS: Glucose, Whole Blood 189 mg/dL (60-115)
[2021-01-29] MEDS: 0.9 % Sodium Chloride Flush 3 ML SYRINGE IVFLUSH (15:13)
[2021-01-29] MEDS: ceFAZolin Sodium/Dextrose,Iso 2 GM/50 ML PIGGYBACK IV (15:13)
[2021-01-29] MEDS: Lactated Ringers 1,000 ML 125 ML IVCONT (15:13)
[2021-01-29] MEDS: Insulin Lispro 100 UNIT/ML 3 ML VIAL SUBCUT ×3 (15:13→21:26)
[2021-01-29] MEDS: ondansetron HCL 4 MG/2 ML VIAL IVPUSH ×2 (15:13→21:26)
[2021-01-29] MEDS: Pregabalin 100 MG CAPSULE PO ×2 (16:13→21:26)
[2021-01-29] MEDS: HYDROmorphone HCl 0.5 MG/0.5 ML SYRINGE 0.25 MG IVPUSH (16:13)
--- NOTE | 2021-01-29 16:27 | P.BOP_ITS ---
Brief Operative Note Date of Service: 01/29/21 Pre-op diagnosis: Severe obesity with comorbidities (see below) Post-op diagnosis: same (& diaphragmatic hernia) Procedure: INITIAL PATIENT BMI ON PRESENTATION AT OUR OFFICE: 36.4 kg/m2 LAST BMI BEFORE SURGERY: 32.6 kg/m2 COMORBIDITIES: GERD, Depression, liver cirrhosis (see pictures), ADHD, Neuropathy, insulin dependent diabetes, diaphragmatic hernia, GERD, liver steatosis, cholelithiasis, liver fibrosis The patient participated in an intensive weekly lifestyle intervention and exercise program during which the patient has lost between the initial office visit and the last preoperative visit 23.2 lbs, or 11.84% of initial actual body weight. The patient met the BMI-criteria for bariatric surgery based on the BMI on initial presentation. The patient should not be penalized for achieving such weight loss because it is not sustainable long-term without surgical intervention and it was achieved in preparation for bariatric surgery under my direction and based on my published research ([email or web address] and [email or web address]) that a 10% preoperative weight loss improves long-term weight loss after surgery and reduces perioperative complications. Insurance carriers such as [facility] have endorsed my recommendations and have included in their policies criteria to include a 10% preoperative weight loss requirement. PROCEDURE: Esophago-gastroscopy, laparoscopic repair of incarcerated diaphragmatic hernia, laparoscopic lysis of adhesions, laparoscopic sleeve gastrectomy and laparoscopic gastropexy INDICATIONS: This is a 40 year-old female who was electively scheduled for laparoscopic, possibly open sleeve gastrectomy. The risks and complications of the procedure were discussed with the patient in advance, particularly the possibility of ; pulmonary embolism; staple line leak; bleeding; GERD; cardiac, pulmonary, or renal complications; as well as long-term problems such as insufficient weight loss, vitamin deficiency, strictures, or ulcers. The patient understood all the risks, and was in agreement to proceed with surgery. DESCRIPTION OF PROCEDURE: After informed consent was obtained from the patient, the patient was given preoperative antibiotics, and was transferred to the operating room. After successful induction of general anesthesia, pneumatic compressive devices were placed on both lower extremities. An upper endoscopy was performed next. The oropharynx and esophagus appeared to be within normal limits. There was a diaphragmatic hernia present of moderate size that was not reported at the preoperative upper GI. The stomach was entered. Then after all fluid and air were suctioned and the stomach was fully decompressed, the scope was withdrawn and secured in the mid esophagus. The patient was then prepped and draped in the usual sterile manner, and abdominal access was established at the right upper quadrant with the Kamron technique. A 12 mm blunt port was inserted, and the abdomen was insufflated with CO2 to a pressure of 15 mmHg. Under direct visualization, additional ports were placed, specifically two 5 mm Versi-step ports to the left upper quadrant, and a 5 mm Versi-Step port to the right upper quadrant. 1% lidocaine plan was used to infiltrate all port sites as well as all fascia defects. Following that, the patient was placed in a steep reverse Trendelenburg position. An additional 5 mm port was placed to the right flank for the Mediflex retractor that was used to retract the left lobe of the liver. The gastro-esophageal fat pad was opened with the ultrasonic device (Thunderbeat, Olympus) and the anterior esophagus and hiatus were exposed. The angle of His was opened with the ultrasonic device the fundus of the stomach from any diaphragmatic and splenic attachments. I then opened the gastrocolic ligament between the transverse colon and the greater curvature of the stomach with the ultrasonic device to enter the lesser sac and facilitate the ligation of the short gastric vessels. I started at a mid-point along the greater curvature and using the Thunderbeat, all short gastric vessels were divided all the way to the angle of His until the left edwin was completely dissected at its entirety. I then divided the gastro-colic ligament distally to a distance of about 3-4 cm proximal to the esophagus. There was an obvious significant-sized hiatal hernia. I continued dissecting along the hiatus toward the left edwin and the angle of His. I fully mobilized the fat pad that was incarcerated in the hernia. I then continued by dissecting even further into the posterior retro-esophageal space all the way to the angle of His. I continued to mobilize the esophagus into the mediastinum circumferentially. Both vagal nerves were seen and preserved. At that point, I was able to have at least 3 to 5 cm of esophagus into the abdomen. After I completely mobilized the esophagus from both the left and right edwin and I had a good mobilization of the esophagus circumferentially, I closed the hernia defect with three interrupted #0 Surgidac sutures using the Endo Stitch device, two of which were placed posterior and one anterior to the esophagus. The stomach was then divided transversely with one Endo KIP-45 purple and four KIP-60 articulating orange loads using the AEON stapler and loads. Every effort was made that the gastric sleeve had a tubular shape and an even caliber throughout. Once the sleeve resection was completed, the staple line of the gastric sleeve was reinforced with Hemoclips. The resected stomach was retrieved without difficulty from the Kamron port. A gastropexy was then performed in order to prevent postoperative GERD and partial gastric volvulus. Several interrupted 2.0 Surgidac sutures were placed between the sleeve's staple line and the previously divided greater omentum and gastro-colic ligament using the Endo-Stitch device. An upper endoscopy was performed. There was no narrowing at the GE junction. The scope was easily advanced all the way to the pylorus which was clearly visualized. There was no narrowing anywhere and the sleeve's caliber was even throughout. The sleeve's staple line was inspected and there was no evidence of ischemia, bleeding or dehiscence. At that point the gastroscope was withdrawn from the patient?s mouth while we were decompressing the bowel and the stomach from any remaining air. I looked into the lesser sac to see how the sleeve was situating and it was situating well. There was no bleeding from the staple line, spleen, or short gastric vessels. The Mediflex retractor was removed, and the undersurface of the liver was inspected and there was no bleeding. The patient was placed in supine position. I closed the fascial defect of the 12 mm port site with a figure of eight #1 Polysorb suture. Then 100 cc 0.25 % Marcaine plain with 10 mg of Dexamethasone were used to infiltrate the fascial closure as well as all skin incisions. At this point, the abdomen was deflated, all ports were removed under direct vision, and no bleeding was noted from any of the port sites. The skin incisions were irrigated with saline and were closed with 4-0 absorbable monofilament sutures. Steri-Strips and OpSites were used to cover all incisions. The patient was extubated and was transferred in stable condition to the recovery room for further care. I was present and performed all frausto parts of the procedure. Ms. Avendano was the miller first. There were no residents to assist with this case. Roderick Roberts MD, PhD, FACS Surgeon: Saulo Roberts MD Anesthesia: GETA, local and other (TAP block) Was an Assistant Wrestling Coach used for this Procedure?: Yes Assistant Wrestling Coach: Nguyen Avendano Estimated blood loss (mL): 10 IV fluids (mL): 1,700 Urine output (mL): 0 (No Palomares to record) Pathology: other (Stomach) Condition: stable Disposition: PACU
--- NOTE | 2021-01-29 16:33 | P.PNGS_ITS ---
Subjective Subjective Date of Service: 01/30/21 Interval history: Patient has mild incisional pain but was able to ambulate and use the incentive spirometer. Is tolerating phase 1 bariatric diet. Physical Exam Vital Signs: Vital Signs: Last Vital Signs Temp 96.8 F 01/29/21 15:41 Pulse 104 H 01/29/21 15:41 Resp 18 01/29/21 15:41 BP 158/97 H 01/29/21 15:41 Pulse Ox 100 01/29/21 15:41 Body Mass Index 32.8 GI: Inspection: Yes normal to inspection and Yes incision (clean, dry and intact) Extrem: Right lower extremity: normal to inspection (no calf tenderness) Left lower extremity: normal to inspection (no calf tenderness) Progress Note: A&P Assessment and plan (1) Obesity: Status: Acute (2) BMI 32.0-32.9,adult: (3) S/P laparoscopic sleeve gastrectomy: Status: Acute Assessment and Plan: s/p laparoscopic sleeve gastrectomy, gastropexy and diaphragmatic hernia repair Doing well Check am labs. If OK, will d/c home later today (4) History of repair of hiatal hernia: Status: Acute (5) Hiatal hernia: Status: Acute (6) Insulin dependent diabetes mellitus: Status: Acute (7) Anxiety: (8) Depression: Status: Acute (9) GERD (gastroesophageal reflux disease): Status: Acute (10) Hypertension: Status: Acute (11) Cirrhosis: Status: Inactive (12) ADD (attention deficit disorder): Status: Acute (13) Neuropathy: Status: Acute Fall Risk Details Current Medications: Current Medications Generic Name Dose Route Start Last Admin Trade Name Freq PRN Reason Stop Dose Admin Amitriptyline HCl 50 mg 01/29/21 21:00 Amitriptyline Hcl 50 Mg Tablet PO BEDTIME [facility] Amlodipine Besylate 5 mg 01/30/21 09:00 Amlodipine Besylate 5 Mg Tablet PO DAILY [facility] Protocol Bupropion HCl 300 mg 01/30/21 09:00 Bupropion Hcl Xl 300 Mg Tab.Er.24h PO DAILY [facility] Buspirone HCl 5 mg 01/29/21 21:00 Buspirone Hcl 5 Mg Tablet PO BID [facility] Escitalopram Oxalate 20 mg 01/30/21 09:00 Escitalopram Oxalate 20 Mg Tablet PO DAILY [facility] Famotidine 20 mg 01/29/21 10:55 01/29/21 11:25 Famotidine/Pf 20 Mg/2 Ml Vial IVPUSH 20 mg BID [facility] Administration Hydromorphone HCl 0.25 mg 01/29/21 14:32 01/29/21 16:13 Hydromorphone Hcl 0.5 Mg/0.5 Ml Syringe IVPUSH 0.25 mg Q4H PRN Administration Pain, Moderate (Pain Scale 4-6 Acetaminophen 1,000 mg in 100 mls @ 16.7 mls/hr 01/29/21 10:55 01/29/21 14:35 Ofirmev IV Infused .Q6H [facility] Infusion Lactated Ringer's 1,000 mls @ 125 mls/hr 01/29/21 15:00 01/29/21 15:13 Lr IVCONT 125 mls/hr .Q8H [facility] Administration Insulin Human Lispro 0 unit 01/29/21 14:32 01/29/21 15:13 Insulin Lispro 100 Unit/Ml 3 Ml Vial SUBCUT 2 unit Q4H [facility] Administration Protocol Lisinopril 20 mg 01/30/21 09:00 Lisinopril 20 Mg Tablet PO DAILY [facility] Protocol Metoclopramide HCl 10 mg 01/29/21 14:32 Metoclopramide Hcl 10 Mg/2 Ml Vial IVPUSH Q6H PRN Nausea Ondansetron HCl 4 mg 01/29/21 14:32 01/29/21 15:13 Ondansetron Hcl 4 Mg/2 Ml Vial IVPUSH 4 mg Q8H [facility] Administration Pregabalin 100 mg 01/29/21 15:00 01/29/21 16:13 Pregabalin 100 Mg Capsule PO 100 mg TID [facility] Administration Sodium Chloride 3 ml 01/29/21 16:00 01/29/21 15:13 0.9 % Sodium Chloride Flush 3 Ml Syringe IVFLUSH 3 ml QSHIFT [facility] Administration Time Spent With Patient Time: Total time spent is greater than 50% in coordination of care (as documented) at patient's floor/unit and/or counseling patient: Time with patient: less than 15 minutes Procedures Date of Service Date of Service: 01/30/21
[2021-01-29 18:26] LABS: Glucose, Whole Blood 175 mg/dL (60-115)
[2021-01-29 21:10] LABS: Glucose, Whole Blood 171 mg/dL (60-115)
[2021-01-29] MEDS: Amitriptyline HCl 50 MG TABLET PO (21:26)
[2021-01-29] MEDS: busPIRone HCl 5 MG TABLET PO (21:26)
[2021-01-30] MEDS: Lactated Ringers 1,000 ML 125 ML IVCONT (01:00)
[2021-01-30 01:55] LABS: Glucose, Whole Blood 175 mg/dL (60-115)
[2021-01-30] MEDS: Insulin Lispro 100 UNIT/ML 3 ML VIAL SUBCUT ×2 (02:20→06:22)
[2021-01-30 03:37] VITALS: BP 159/82; PULSE 92; RESP 18; TEMP 36.1; O2SAT 96
[2021-01-30] MEDS: ondansetron HCL 4 MG/2 ML VIAL IVPUSH (05:22)
[2021-01-30 06:05] LABS: Glucose, Whole Blood 171 mg/dL (60-115)
--- NOTE | 2021-01-30 06:49 | HO.POSTANES ---
Post Anesthesia Evaluation Post Anesthesia Evaluation Vital Signs: Vital Signs Temp Pulse Resp BP Pulse Ox 01/30/21 03:37 97.0 F 92 18 159/82 H 96 01/29/21 23:46 98.0 F 94 18 145/87 H 98 Anesthesia: General Endotracheal-GETA Mental Status: Awake Pain Control: Satisfactory Nausea/Vomiting: None Hydration: Adequate Anesthesia-Related Issues: No Anes. Related Issues
[2021-01-30 06:53] LABS: MANUAL DIFF FLAG NO
[2021-01-30 07:19] LABS: Basophils Percent Auto 0.1 % (0-2); Eosinophils Percent Auto 0.1 % (0-4); Hematocrit 34.7 % (37-47); Hemoglobin 11.3 g/dl (12.0-16.0); Imm Gran Abs Auto 0.03 X10*3/uL (0.00-0.03); Imm Gran Pct Auto 0.4 % (0.0-0.4); Lymphocytes Absolute Auto 0.9 X10*3/uL (1.2-4.9); Mean Corpuscular HGB Conc 32.6 g/dl (31.0-35.0); Mean Corpuscular Hemoglobin 25.6 pg (27.0-33.0); Mean Corpuscular Volume 78.5 fL (80-98); Monocytes Absolute Auto 0.4 X10*3/uL (0.1-1.2); Neutrophils Absolute Auto 5.9 X10*3/uL (2.0-8.3); Neutrophils Percent Auto 82.4 % (45-73); Red Blood Count 4.42 X10*6/uL (4.20-5.50); Red Cell Distribution Width 13.2 % (11.0-16.0); White Blood Count 7.2 X10*3/uL (4.8-10.8)
[2021-01-30 07:22] LABS: Glucose, Whole Blood 160 mg/dL (60-115)
[2021-01-30 07:34] LABS: Anion Gap 16 (12-20); Blood Urea Nitrogen 8 mg/dL (9-16); Calcium 8.5 mg/dL (8.4-10.2); Carbon Dioxide 25 mmol/L (22-29); Chloride 101 mmol/L (96-108); Creatinine Clr Calc Pharmacy 108.2; Estimated Glomerular Filt Rate > 60; Glucose Random 171 mg/dL (60-115); Potassium 3.7 mmol/L (3.3-5.1); Sodium 138 mmol/L (135-145)
[2021-01-30 07:41] LABS: Platelet Count 88 X10*3/uL (160-400)
[2021-01-30 07:51] VITALS: BP 160/89; PULSE 97; RESP 19; TEMP 36.7; O2SAT 96
--- NOTE | 2021-01-30 09:12 | MHC.CM.PN ---
NURSE EDM OPERATOR NOTE ELECTRONIC MEDICAL RECORD REVIEWED ALONG WITH CASE DISCUSSED WITH BALWINDER NURSE , MET WITH PATIENT S/P ON 01/29/21 GASTRIC SLEEVE BYPASS. SHE REPORTED SHE LIVES WITH HER TWO DAUGHTERS 14 YRS AND 24 YRS. 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
[2021-01-30] MEDS: amLODIPine Besylate 5 MG TABLET PO (09:33)
[2021-01-30] MEDS: busPIRone HCl 5 MG TABLET PO (09:33)
[2021-01-30] MEDS: buPROPion HCl XL 300 MG TAB.ER.24H PO (09:33)
[2021-01-30] MEDS: Famotidine/PF 20 MG/2 ML VIAL IVPUSH (09:33)
[2021-01-30] MEDS: Escitalopram Oxalate 20 MG TABLET PO (09:33)
[2021-01-30] MEDS: lisinopriL 20 MG TABLET PO (09:33)
[2021-01-30] MEDS: Pregabalin 100 MG CAPSULE PO (09:33)
== END 2021-01-30 10:43 | disposition home or self-care (01) | DRG 403 ==
LOC: HO.SSSA 06:15 → HO.S3 08:48
PROVIDERS: Nurse Practitioner; Physician Assistant; Admitting Provider Surgery; PCP Nurse Practitioner Family; Visit Provider Surgery
PROC: 0DB64Z3 Excision of Stomach, Percutaneous Endoscopic Approach, Vertical (ICD-10-PCS; CPT 43845; principal; 2021-01-29 07:30)
DX: E66.01 Morbid (severe) obesity due to excess calories (principal); E11.42 Type 2 diabetes mellitus with diabetic polyneuropathy; K74.60 Unspecified cirrhosis of liver; F32.9 Major depressive disorder, single episode, unspecified; F90.9 Attention-deficit hyperactivity disorder, unspecified type; K44.0 Diaphragmatic hernia with obstruction, without gangrene; I10 Essential (primary) hypertension; F41.9 Anxiety disorder, unspecified; Z20.822 Contact with and (suspected) exposure to COVID-19; K21.9 Gastro-esophageal reflux disease without esophagitis; Z68.32 Body mass index [BMI] 32.0-32.9, adult; Z79.4 Long term (current) use of insulin; Z79.899 Other long term (current) drug therapy
CPT/HCPCS: 36415; 80048; 80053; 80061; 81025; 82947; 83036; 83525; 84443; 85014; 85018; 85025; 85610; 85730; 86140; 86850; 86900; 86901; 87635; 88307; 88342; 99024; A4649; J0131; J0690; J1100; J1170; J2250; J2405; J3010

== ENCOUNTER → 2021-02-06 07:31 | Outpatient (BNVA) | payer OTHER, SELFPAY | PROVIDERS: PCP Nurse Practitioner Family; Visit Provider Surgery | DX: E66.9 Obesity, unspecified (principal); Z98.84 Bariatric surgery status | CPT/HCPCS: 99212 ==

== ENCOUNTER → 2021-03-06 07:37 | Outpatient (BNVA) | payer OTHER, SELFPAY | PROVIDERS: PCP Nurse Practitioner Family; Visit Provider Surgery | DX: E66.9 Obesity, unspecified (principal); Z68.30 Body mass index [BMI] 30.0-30.9, adult | CPT/HCPCS: 99212 ==

== ENCOUNTER → 2021-04-20 06:49 | Outpatient (BNVA) | payer OTHER, SELFPAY | PROVIDERS: PCP Nurse Practitioner Family; Visit Provider Surgery | DX: E66.3 Overweight (principal); Z68.29 Body mass index [BMI] 29.0-29.9, adult | CPT/HCPCS: 99212 ==